=== PATIENT | female | born 1955 | race Asian ===

== ENCOUNTER 2017-08-26 00:03 | Emergency (ER) | payer BC ==
[2017-08-26 00:16] VITALS: BP 160/91; PULSE 66; TEMP 97.9; BMI 26.4
--- NOTE | 2017-08-26 00:28 | PDOC ---
History of Present Illness - General History Source: Patient Exam Limitations: No Limitations - History of Present Illness Initial Comments: 08/26/17 00:51 The patient is a 62 year old female with a significant PMH of CVA,pacemaker, HTN ,thyroid CA and HLD who presents to the emergency department, via EMS, with sudden onset of pain behind her right knee earlier today. Patient reports that she was walking when she had a sudden onset of behind the right knee pain. She states her right knee pain is constant and she is unable to stand secondary to her right knee pain . She also reports that she took 2 tylenol prior to arriving to ED with no relief of present symptoms. She states that she had no recent trauma or injury to her knee. Patient denies any past knee surgeries. Denies pain to the front part of her knee. The patient denies chest pain, shortness of breath, headache and dizziness. Denies fever, chills, nausea, vomit, diarrhea and constipation. Denies dysuria, frequency, urgency and hematuria. Denies focal numbness, weakness or tingling Allergies: NKA Past surgical history: Thyroid removal , total hysterectomy <Lisa Truong - Last Filed: 08/26/17 01:32> <Anne-Marie Davis - Last Filed: 08/26/17 16:36> - General Chief Complaint: Pain, Acute Stated Complaint: R LEG PAIN Time Seen by Provider: 08/26/17 00:14 Past History <Lisa Truong - Last Filed: 08/26/17 01:32> - Past Medical History Anemia: No Asthma: No Cancer: No Cardiac Disorders: Yes (HX OF TACHY-LIBRA SYNDROME, MVP) CVA: Yes COPD: No CHF: No Dementia: No Diabetes: No GI Disorders: No Disorders: No HTN: Yes Hypercholesterolemia: Yes Liver Disease: No Seizures: No Thyroid Disease: Yes (HX OF THYROID CANCER) - Surgical History Abdominal Surgery: No Appendectomy: No Cardiac Surgery: Yes (PACEMAKER) Cholecystectomy: No Lung Surgery: No Neurologic Surgery: No Orthopedic Surgery: No - Immunization History Immunization Up to Date: No - Suicide/Smoking/Psychosocial Hx Smoking History: Never smoked Have you smoked in the past 12 months: No Hx Alcohol Use: No Drug/Substance Use Hx: No Substance Use Type: None <Anne-Marie Davis - Last Filed: 08/26/17 16:36> - Past Medical History Allergies/Adverse Reactions: Allergies Allergy/AdvReac Type Severity Reaction Status Date / Time No Known Allergies Allergy Verified 08/26/17 00:11 Home Medications: Ambulatory Orders Levothyroxine [Synthroid -] 100 mcg PO DAILY #0 tablet 05/13/13 Omeprazole [Prilosec (RX)] 20 mg PO DAILY #7 capsule 05/13/13 Simvastatin [Zocor] 20 mg PO HS #7 tablet 05/13/13 Carvedilol 25 mg PO DAILY 08/26/17 Losartan Potassium [Cozaar] 150 mg PO DAILY 08/26/17 Review of Systems - Review of Systems Able to Perform ROS?: Yes Comments:: 08/26/17 00:52 CONSTITUTIONAL: Absent: fever, chills, diaphoresis, generalized weakness, malaise, loss of appetite HEENT: Absent: rhinorrhea, nasal congestion, throat pain, throat swelling, difficulty swallowing, mouth swelling, ear pain, eye pain, visual Changes CARDIOVASCULAR: Absent: chest pain, syncope, palpitations, irregular heart rate, lightheadedness , peripheral edema RESPIRATORY: Absent: cough, shortness of breath, dyspnea with exertion, orthopnea, wheezing, stridor, hemoptysis GASTROINTESTINAL: Absent: abdominal pain, abdominal distension, nausea, vomiting, diarrhea, constipation, melena, hematochezia GENITOURINARY: Absent: dysuria, frequency, urgency, hesitancy, hematuria, flank pain, genital pain MUSCULOSKELETAL: +knee pain Absent: joint swelling SKIN: Absent: rash, itching, pallor HEMATOLOGIC/IMMUNOLOGIC: Absent: easy bleeding, easy bruising, lymphadenopathy, frequent infections ENDOCRINE: Absent: unexplained weight gain, unexplained weight loss, heat intolerance, cold intolerance NEUROLOGIC: Absent: headache, focal weakness or paresthesias, dizziness, unsteady gait, seizure, mental status changes, bladder or bowel incontinence PSYCHIATRIC: Absent: anxiety, depression, suicidal or homicidal ideation, hallucinations. All Other Systems: Reviewed and Negative <Lisa Truong - Last Filed: 08/26/17 01:32> *Physical Exam - Vital Signs Last Vital Signs Temp Pulse Resp BP Pulse Ox 97.9 F 66 18 160/91 100 08/26/17 00:11 08/26/17 00:11 08/26/17 00:11 08/26/17 00:11 08/26/17 00:11 - Physical Exam Comments: 08/26/17 00:52 GENERAL: Well developed, well nourished. Awake and alert. No acute distress. HEENT: Normocephalic, atraumatic. PERRLA, EOMI. No conjunctival pallor. Sclera are non- icteric. Moist mucous membranes. Oropharynx is clear. NECK: Supple. Full ROM. No JVD. Carotid pulses 2+ and symmetric, without bruits. No thyromegaly. No lymphadenopathy. CARDIOVASCULAR: Regular rate and rhythm. No murmurs, rubs, or gallops. Distal pulses are 2+ and symmetric. PULMONARY: No evidence of respiratory distress. Lungs clear to auscultation bilaterally. No wheezing, rales or rhonchi. ABDOMINAL: Soft. Non-tender. Non-distended. No rebound or guarding. No organomegaly. Normoactive bowel sounds. MUSCULOSKELETAL Normal range of motion at all joints. No bony deformities or tenderness. No CVA tenderness. EXTREMITIES: +Pain behind right knee. No toe pain, No foot pain. No ankle pain, No calf pain. No history of trauma. No cyanosis. No clubbing. No edema. No calf tenderness. SKIN: Warm and dry. Normal capillary refill. No rashes. No jaundice. NEUROLOGICAL: Alert, awake, appropriate. Cranial nerves 2-12 intact. No deficits to light touch and temperature in face, upper extremities and lower extremities. No motor deficits in the in face, upper extremities and lower extremities. Normoreflexic in the upper and lower extremities. Normal speech. Toes are down- going bilaterally. Gait is normal without ataxia. PSYCHIATRIC: Cooperative. Good eye contact. Appropriate mood and affect. <Lisa Truong - Last Filed: 08/26/17 01:32> - Vital Signs Last Vital Signs Temp Pulse Resp BP Pulse Ox 97.9 F 66 18 160/91 100 08/26/17 00:11 08/26/17 00:11 08/26/17 00:11 08/26/17 00:11 08/26/17 00:11 <Anne-Marie Davis - Last Filed: 08/26/17 16:36> ED Treatment Course - RADIOLOGY Radiograph Interpretation: 08/26/17 01:33 EXAM: Ultrasound DUPLEX VASCULAR US-1 LEG IMPRESSION: No deep vein thrombosis Reported by Imaging Oncall - Medications Given in the ED: ED Medications Discontinued Medications Generic Name Dose Route Start Last Admin Trade Name Fredy PRN Reason Stop Dose Admin Carvedilol 25 mg 08/26/17 00:32 08/26/17 00:46 Coreg - PO 08/26/17 00:33 25 mg ONCE ONE Administration Ketorolac Tromethamine 60 mg 08/26/17 00:32 08/26/17 00:46 Toradol Injection - IM 08/26/17 00:33 60 mg ONCE ONE Administration <Lisa Truong - Last Filed: 08/26/17 01:32> *DC/Admit/Observation/Transfer - Attestations Scribe Attestion: 08/26/17 00:52 Documentation prepared by Lisa Truong, acting as medical technologist generalist for Anne-Marie Davis MD <Lisa Truong - Last Filed: 08/26/17 01:32> <Anne-Marie Davis - Last Filed: 08/26/17 16:36> Diagnosis at time of Disposition: Knee pain, acute - Discharge Dispostion Disposition: HOME Condition at time of disposition: Good - Referrals Referrals: Radha Cohen [Primary Care Provider] - Scott Sotelo MD [Staff Physician] - - Patient Instructions Printed Discharge Instructions: Knee Sprain, DI for Knee Pain Additional Instructions: you can take motrin 600 mg every 8 hours as needed for pain. follow up with your orthopedist dr. sotelo. see referral number. - Post Discharge Activity
[2017-08-26] MEDS ORDERED: KETOROLAC TROMETHAMINE 60 MG/2 ML VIAL IM ONE (00:32)
[2017-08-26] MEDS ORDERED: CARVEDILOL 25 MG TABLET (FP) PO ONE (00:32)
[2017-08-26] MEDS ORDERED: CARVEDILOL 12.5 MG TABLET (FP) ONE (00:44)
[2017-08-26] MEDS ORDERED: KETOROLAC TROMETHAMINE 60 MG/2 ML VIAL ONE (00:44)
[2017-08-26] MEDS ORDERED: CYCLOBENZAPRINE HCL 10 MG TABLET (FP) PO ONE (02:01)
[2017-08-26] MEDS ORDERED: CYCLOBENZAPRINE HCL 10 MG TABLET (FP) ONE (02:03)
--- NOTE | 2017-08-26 04:24 | PDOC ---
*Physical Exam - Vital Signs Last Vital Signs Temp Pulse Resp BP Pulse Ox 97.9 F 66 18 160/91 100 08/26/17 00:11 08/26/17 00:11 08/26/17 00:11 08/26/17 00:11 08/26/17 00:11 ED Treatment Course - RADIOLOGY Radiology Studies Ordered: Category Date Time Status KNEE 3 POS-RIGHT [RAD] Stat Radiology 08/26/17 02:42 Taken SPINE-LUMBAR SACRAL [RAD] Stat Radiology 08/26/17 02:43 Taken - Medications Given in the ED: ED Medications Discontinued Medications Generic Name Dose Route Start Last Admin Trade Name Freq PRN Reason Stop Dose Admin Carvedilol 25 mg 08/26/17 00:32 08/26/17 00:46 Coreg - PO 08/26/17 00:33 25 mg ONCE ONE Administration Cyclobenzaprine HCl 5 mg 08/26/17 02:01 08/26/17 02:05 Flexeril - PO 08/26/17 02:02 5 mg ONCE ONE Administration Ketorolac Tromethamine 60 mg 08/26/17 00:32 08/26/17 00:46 Toradol Injection - IM 08/26/17 00:33 60 mg ONCE ONE Administration Oxycodone/Acetaminophen 1 combo 08/26/17 02:01 08/26/17 02:05 Percocet 5/325 - PO 08/26/17 02:02 Not Given ONCE ONE Medical Decision Making - Medical Decision Making 08/26/17 04:19 62 yo Fwtih h/o sciatica, here with c/o right posterior knee pain. started suddenly, unable to bear weight on leg due to severe pain. has had recent back pain. denies trauma. was signed out to me by Dr. Davis. had us was negative for diaz cyst or dvt. xray knee and low back negative for fx. on exam from knee. quad/ patellar tendon intact, ( full ext 5/5) sensation intact. ttp posterior lower hamstrings. differential knee ligament derangement, muscle strain. paln nsaids, muscle relaxed, knee immobilizercrutches and orthopedic followup. *DC/Admit/Observation/Transfer Diagnosis at time of Disposition: Knee pain, acute - Discharge Dispostion Disposition: HOME Condition at time of disposition: Good Admit: No - Referrals Referrals: Radha Cohen [Primary Care Provider] - Scott Sotelo MD [Staff Physician] - - Patient Instructions Printed Discharge Instructions: Knee Sprain, DI for Knee Pain Additional Instructions: you can take motrin 600 mg every 8 hours as needed for pain. follow up with your orthopedist dr. sotelo. see referral number. - Post Discharge Activity
== END 2017-08-26 04:46 | disposition home or self-care (01) ==
LOC: JER 00:03
PROC: 3E0233Z Introduction of Anti-inflammatory into Muscle, Percutaneous Approach (ICD-10-PCS; principal; 2017-08-26)
DX: M25.561 Pain in right knee (principal); I10 Essential (primary) hypertension; E78.00 Pure hypercholesterolemia, unspecified; Z95.0 Presence of cardiac pacemaker; Z86.73 Personal history of transient ischemic attack (TIA), and cerebral infarction without residual deficits; Z85.850 Personal history of malignant neoplasm of thyroid
CPT/HCPCS: 72100-TC-FY; 73562-TC-RT-FY; 93971-TC; 99283-25

== ENCOUNTER 2019-04-22 16:02 | Observation (INO) | payer BC ==
[2019-04-22 16:48] VITALS: BMI 25.4
--- NOTE | 2019-04-22 17:19 | PDOC ---
History of Present Illness - General Chief Complaint: Syncope/Near Syncope Stated Complaint: Syncope/Near Syncope Time Seen by Provider: 04/22/19 16:19 History Source: Patient Exam Limitations: No Limitations Past History - Past Medical History Allergies/Adverse Reactions: Allergies Allergy/AdvReac Type Severity Reaction Status Date / Time No Known Allergies Allergy Verified 04/22/19 16:48 Home Medications: Ambulatory Orders Omeprazole [Prilosec (RX)] 20 mg PO DAILY #7 capsule 05/13/13 Simvastatin [Zocor] 20 mg PO HS #7 tablet 05/13/13 Carvedilol 25 mg PO DAILY 08/26/17 Losartan Potassium [Cozaar] 100 mg PO DAILY 08/26/17 Gabapentin 100 mg PO DAILY 04/22/19 Gabapentin 300 mg PO PRN PRN 04/22/19 Levothyroxine [Synthroid -] 50 mcg PO ASDIR 04/22/19 Levothyroxine [Synthroid -] 100 mcg PO ASDIR 04/22/19 Losartan Potassium 50 mg PO HS 04/22/19 Anemia: No Asthma: No Cancer: No Cardiac Disorders: Yes (HX OF TACHY-LIBRA SYNDROME, MVP) CVA: Yes COPD: No CHF: No Dementia: No Diabetes: No GI Disorders: No Disorders: No HTN: Yes Hypercholesterolemia: Yes Liver Disease: No Seizures: No Thyroid Disease: Yes (HX OF THYROID CANCER) - Surgical History Abdominal Surgery: No Appendectomy: No Cardiac Surgery: Yes (PACEMAKER) Cholecystectomy: No Lung Surgery: No Neurologic Surgery: No Orthopedic Surgery: No - Immunization History Immunization Up to Date: No - Psycho Social/Smoking Cessation Hx Smoking History: Never smoked Have you smoked in the past 12 months: No Information on smoking cessation initiated: No Hx Alcohol Use: No Drug/Substance Use Hx: No Substance Use Type: None Review of Systems - Review of Systems Able to Perform ROS?: Yes Is the patient limited Arabic proficient: No *Physical Exam - Vital Signs Last Vital Signs Temp Pulse Resp BP Pulse Ox 97.3 F L 60 16 135/86 100 04/22/19 16:05 04/22/19 16:05 04/22/19 16:05 04/22/19 16:05 04/22/19 16:05 ED Treatment Course - LABORATORY CBC & Chemistry Diagram: 04/22/19 17:55 04/22/19 17:55 - RADIOLOGY Radiology Studies Ordered: Category Date Time Status CHEST X-RAY PORTABLE* [RAD] Stat Radiology 04/22/19 16:53 Ordered Medical Decision Making - Medical Decision Making 04/22/19 17:10 HPI: 64F PMH HTN HLD Hypothyroidism s/p resection BIBEMS after episode of LOC. Pt was standing in line at a store, felt "off" and that her vision was blacking out. Assisted to ground by bystanders. Pt unable to characterize the feeling. + LOC w/o head strike; pt woke up and noticed she had vomited. No incontinence or tongue biting. Per pt, EMS found her SBP in the 80s and BGM 120s; IV NS initiated. Pt denies preceeding symptoms of nausea, warmness, rising sensation, cp/palpitations/sob. Denies headache, lightheadedness, dizziness, weakness. Eating and drinking normally. +h/o syncope w/ neg work up. 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 Radha Jasso). PMH as above; currently on day 9 of shingles tx NKDA ROS: CONSTITUTIONAL: Denies F / C HEENT: Denies headache, lightheadedness, dizziness, changes in vision / hearing , head strike. RESP: Denies SOB CARD: Denies chest pain, palpitations GI: Endorses one episode vomiting. Denies N / D, abdominal pain, inability to tolerate PO : Denies dysuria, frequency SKIN: Denies rashes NEURO: Denies numbness, tingling, weakness PE: GEN: Well appearing, NAD, comfortable. AAOx3 HEENT: NC/AT, CN II-XII intact, EOMI, PERRLA. No facial asymmetry. Moist mucous membranes. Normal voice. Supple neck w/ FROM. CV: S1/S2, RRR, no m/r/g LUNG: CTAB, no wheezes, crackles, rales, rhonchi. GI: soft, ndnt, +BS, no guarding, no rebound. No masses. EXTREMITIES: No LE edema. No obvious deformities of all extremities. SKIN: warm, dry, normal turgor PSYCH: normal mood and affect NEURO: Moving all extremities well. 5/5 UE and LE strength. Symmetric sensation. No FTN ataxia. MDM: 64F BIBEMS after syncopal episode. No focal deficits. DDX - likely vasovagal vs orthostatic; eval for arrhythmia, electrolyte abnormalities - cbc, cmp, cardiac - ekg - cxr - obs-tele 04/22/19 18:56 Ca corrected to 7.9 K 3.4 - added on Mg lvl 04/22/19 19:06 signed out to PM team
[2019-04-22 18:04] LABS: BASO % 1.1 % (0-2.0); EOS % 1.3 % (0-4.5); HEMATOCRIT 32.8 % (32.4-45.2); HEMOGLOBIN 10.8 GM/dL (10.7-15.3); LYMPH % 18.9 % (8-40); MCH 30.5 pg (25.7-33.7); MEAN CELL VOLUME 92.6 fl (80-96); MEAN PLT VOLUME 8.8 fl (7.5-11.1); MONO % 5.3 % (3.8-10.2); NEUT % 73.4 % (42.8-82.8); PLATELET COUNT 169 K/MM3 (134-434); RBC 3.54 M/mm3 (3.60-5.2); RDW 13.6 % (11.6-15.6); WHITE BLOOD COUNT 6.3 K/mm3 (4.0-10.0)
[2019-04-22 18:08] LABS: EPI CELLS 1.2 /HPF (0-5/HPF); HYALINE CASTS 5 /lpf (0-8); PH,URINE 5.5 (5.0-8.0); URINE APPEARANCE CLEAR; URINE BACTERIA 1.5 /hpf (NEGATIVE); URINE BILIRUBIN NEGATIVE (NEGATIVE); URINE COLOR YELLOW; URINE GLUCOSE (UA) NEGATIVE (NEGATIVE); URINE KETONE NEGATIVE (NEGATIVE); URINE LEUK ESTERASE TRACE (NEGATIVE); URINE NITRITE NEGATIVE (NEGATIVE); URINE PROTEIN NEGATIVE (NEGATIVE); URINE RBC 1 /hpf (0-4); URINE UROBILINOGEN 0.2 mg/dL (0.2-1.0); URINE WBC 8 /hpf (0-5)
--- NOTE | 2019-04-22 18:35 | PDOC ---
Documentation entered by Keith Michael SCRIBE, acting as scribe for Nallely Lopes MD. Nallely Lopes MD: This documentation has been prepared by the Alec blankenship Daniel, SCRIBE, under my direction and personally reviewed by me in its entirety. I confirm that the documentation accurately reflects all work, treatment, procedures, and medical decision making performed by me. Attending Attestation - Resident Resident Name: MontgomeryKevin - ED Attending Attestation I have performed the following: I have examined & evaluated the patient, The case was reviewed & discussed with the resident, I agree w/resident's findings & plan, Exceptions are as noted - HPI HPI: 04/22/19 17:30 The patient is a 64 year old female with a past medical history of HTN, HLD, hypothyroidism, tachycardia-bradycardia syndrome s/p pacemaker here today for evaluation of witnessed syncopal episode. The patient reports that she was shopping today when she suddenly felt like she was going to pass out so she sat down in the supermarket. She reports that the next thing she remembers was waking up with vomit everywhere. She states that there were witnesses and denies any head strike. She notes having vasovagal episodes in the past. Per EMS , pt was hypotensive in the field to 80s systolic and received some fluids in route. Pt does not know what kind of pacemaker she has, nor does she have her card. Patient denies headache, dizziness, focal weakness/numbness. Denies fever, chills. Denies chest pain, shortness of breath. Denies nausea, vomiting, diarrhea, abdominal pain. Allergies: NKA - Physicial Exam PE: 04/22/19 17:30 GENERAL: Awake, alert, and fully oriented, in no acute distress HEAD: No signs of trauma EYES: PERRLA, EOMI, sclera anicteric, conjunctiva clear ENT: Oropharynx clear without exudates. Moist mucosa NECK: Normal ROM, supple, no lymphadenopathy, JVD, or masses BACK: No midline cervical, thoracic, or lumbar tp LUNGS: Breath sounds equal, clear to auscultation bilaterally. No wheezes, and no crackles HEART: Regular rate and rhythm, normal S1 and S2, no murmurs, rubs or gallops ABDOMEN: Soft, nontender, normoactive bowel sounds. No guarding, no rebound. No masses EXTREMITIES: Normal range of motion, no edema. No cords, erythema, or tenderness BACK: No midline spinal tenderness in cervical/thoracic/lumbar region NEUROLOGICAL: Normal speech, cranial nerves intact, 5/5 strength in all 4 extremities, normal sensation to light touch in all 4 extremities, normal cerebellar exam, normal gait, normal reflexes and tone SKIN: Warm, Dry, normal turgor, no rashes or lesions noted. - Medical Decision Making 04/22/19 18:31 64-year-old female with multiple medical problems including tachybradycardia syndrome status post pacemaker, syncope presents the emergency department after syncopal episode at the [facility]. Patient was hypotensive in the field to the 80s systolic, but this improved with fluids on the way to the emergency department Vitals here are unremarkable. Exam unremarkable with no evidence of trauma. Concern for cardiac arrhythmia and pacemaker failure. Patient does not know pain if pacemaker she has noticed to have her card. She says it was [facility] in [facility]. Plan for telemetry monitoring, labs and telemetry observation admission. Heart Score/ECG Review #1 04/22/19 18:30 Twelve-lead EKG was performed and reviewed by me. Atrial paced rhythm, rate 62. Wavy baseline in some leads but no gross ST elevations.
[2019-04-22 18:39] LABS: ALBUMIN 2.8 g/dl (3.4-5.0); ALK PHOS 55 U/L (45-117); ANION GAP 9 MMOL/L (8-16); BILIRUBIN,TOTAL 0.6 mg/dL (0.2-1); CHLORIDE 112 mmol/L (98-107); CO2 22 mmol/L (21-32); CREATININE 0.7 mg/dL (0.55-1.3); GLUCOSE,RANDOM 91 mg/dL (74-106); POTASSIUM 3.4 mmol/L (3.5-5.1); SGOT/AST 12 U/L (15-37); SGPT/ALT 14 U/L (13-61); SODIUM 143 mmol/L (136-145); TOT PROT 5.6 g/dl (6.4-8.2)
[2019-04-22 18:40] LABS: CALCIUM 6.9 mg/dL (8.5-10.1)
[2019-04-22 19:14] LABS: MAGNESIUM 1.9 mg/dL (1.8-2.4)
[2019-04-22] MEDS ORDERED: GABAPENTIN 300 MG CAPSULE (FP) PO ONE (19:42)
[2019-04-22] MEDS ORDERED: valACYclovir HCL 1000 MG TABLET PO ONE (19:42)
--- NOTE | 2019-04-22 19:43 | PDOC ---
*Physical Exam - Vital Signs Last Vital Signs Temp Pulse Resp BP Pulse Ox 97.3 F L 73 18 139/79 98 04/22/19 16:05 04/22/19 19:36 04/22/19 19:36 04/22/19 19:36 04/22/19 19:36 ED Treatment Course - LABORATORY CBC & Chemistry Diagram: 04/22/19 17:55 04/22/19 17:55 - ADDITIONAL ORDERS Additional order review: Laboratory Results 04/22/19 04/22/19 17:55 17:55 Sodium 143 Potassium 3.4 L Chloride 112 H Carbon Dioxide 22 Anion Gap 9 BUN 12.0 Creatinine 0.7 Est GFR (CKD-EPI)AfAm 106.12 Est GFR (CKD-EPI)NonAf 91.56 Random Glucose 91 Calcium 6.9 L* Magnesium 1.9 Total Bilirubin 0.6 AST 12 L ALT 14 Alkaline Phosphatase 55 Creatine Kinase 52 Troponin I < 0.02 Total Protein 5.6 L Albumin 2.8 L Urine Color Yellow Urine Appearance Clear Urine pH 5.5 Ur Specific [place] 1.009 L Urine Protein Negative Urine Glucose (UA) Negative Urine Ketones Negative Urine Blood Negative Urine Nitrite Negative Urine Bilirubin Negative Urine Urobilinogen 0.2 Ur Leukocyte Esterase Trace Urine WBC (Auto) 8 Urine RBC (Auto) 1 Urine Casts (Auto) 5 U Epithel Cells (Auto) 1.2 Urine Bacteria (Auto) 1.5 04/22/19 17:55 RBC 3.54 L MCV 92.6 MCHC 33.0 RDW 13.6 MPV 8.8 Neutrophils % 73.4 Lymphocytes % 18.9 Monocytes % 5.3 Eosinophils % 1.3 Basophils % 1.1 Medical Decision Making - Medical Decision Making 04/22/19 19:43 Sign out received fom Dr. Montgomery: 64yo F multiple medical problems including tachybradycardia syndrom s/p PM, syncope, and shingles on day 9 of valtrex and gabapentin presents to ED after syncopal episode at [facility] today, hypotensive with SBP 80s per EMS, improved with fluids. Labs and EKG done - of note, EKG atrial paced rhythm w/o e /o acute ischemia, K 3.4, Ca 6.9 (corrected 8.1). Pending CXR and repletion of K and Ca, admit to tele obs for syncope. Pt seen and assessed at bedside, requesting her Gabapentin, Valtrex, and kosher food - ordered. No current complaints or new findings. No changes in plan. CXR reviewed - no acute pathology K and Ca ordered to replete. Pt signed out to admitting team. Discharge - Discharge Information Problems reviewed: Yes Clinical Impression/Diagnosis: Syncope Condition: Stable - Admission Yes - Follow up/Referral - Patient Discharge Instructions - Post Discharge Activity
[2019-04-22] MEDS ORDERED: valACYclovir HCL 500 MG TABLET (FP) ONE (20:02)
[2019-04-22] MEDS ORDERED: GABAPENTIN 100 MG CAPSULE (FP) ONE (20:03)
[2019-04-22] MEDS ORDERED: CALCIUM GLUCONATE 10% - 1,000 MG/10 ML VIAL IVPB ONE (20:39)
[2019-04-22] MEDS ORDERED: POTASSIUM CHLORIDE TABS 20 MEQ TABLET.ER (FP) PO ONE ×4 (20:39→22:43)
[2019-04-22] MEDS ORDERED: CALCIUM GLUCONATE 10% - 1,000 MG/10 ML VIAL ONE (20:57)
[2019-04-22] MEDS ORDERED: HEPARIN NA (PORCINE) 5,000 UNITS/ML 1ML VIAL SQ SCH (21:00)
--- NOTE | 2019-04-22 21:08 | HP ---
CHIEF COMPLAINT: "I blacked out" PCP: Denies HISTORY OF PRESENT ILLNESS: This is a 63 y/o F with a PMHx significant for HTN, Hypothyroidism s/p thyroidectomy, tachybrady syndrome, who was BIBEMS after "blacking out" while shopping. She describes feeling nauseous and vomited but did not recall doing so afterwards. She "blacked out" for a couple seconds but was sitting on the floor at the time because she did not want to risk falling. She denies hitting her head or having any recent trauma. She has a hx of episodes like this since she had a pacemaker placed in 2008. She describes this as being different in that usually she can recall vomiting and it usually is improved after doing so. She had her pacemaker interrogated in 03/14 and it was found to be normal and had an echo at that time found to be normal as well, at [facility]. 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 Tres Hines at [facility]. Pt denies having a hx of seizures or family hx. She denies any cp, palpitations, flushed feeling, fever, chills, sick contacts, bowel/bladder complaints. She started taking gabapentin and valtrex 9 days ago for Shingles on her right neck and arm. She admits that her Dr. increased the neurontin recently from 100->300mg due to worsening pain. Pt admits to having a poor appetite during this treatment period. Pt follows up regularly with her endo dr webster given her hypothyroidism and she is on 100mg synthroid Sat-Sat and Saturday 50mg without any recent change to this medication and recent TSH found to be normal per patient. ER course was notable for: (1) EKG nsr, CXR- no acute pathology (2) Ca- 8.1 corrected (3) K-3.4, Alb, Protein were low as well. Recent Travel: denies PAST SURGICAL HISTORY: hysterectomy, thyroidectomy Social History: Smoking: denies Alcohol: denies Drugs:denies Allergies No Known Allergies Allergy (Verified 04/22/19 16:48) HOME MEDICATIONS: Home Medications Medication Instructions Recorded Omeprazole [Prilosec (RX)] 20 mg PO DAILY #7 capsule 05/13/13 Simvastatin [Zocor] 20 mg PO HS #7 tablet 05/13/13 Carvedilol 25 mg PO DAILY 08/26/17 Losartan Potassium [Cozaar] 100 mg PO DAILY 08/26/17 Gabapentin 100 mg PO DAILY 04/22/19 Gabapentin 300 mg PO PRN PRN 04/22/19 Levothyroxine [Synthroid -] 50 mcg PO ASDIR 04/22/19 Levothyroxine [Synthroid -] 100 mcg PO ASDIR 04/22/19 Losartan Potassium 50 mg PO HS 04/22/19 REVIEW OF SYSTEMS Negative except in HPI PHYSICAL EXAMINATION Vital Signs - 24 hr 04/22/19 04/22/19 16:05 19:36 Temperature 97.3 F L Pulse Rate 60 Pulse Rate [ 73 Right Radial] Respiratory 16 18 Rate Blood Pressure 135/86 Blood Pressure 139/79 [Left Arm] O2 Sat by Pulse 100 98 Oximetry (%) GENERAL: Awake, alert, and fully oriented, in no acute distress. HEAD: Normal with no signs of trauma. EARS, NOSE, THROAT: Ears normal, nares patent, oropharynx clear without exudates. LUNGS: Breath sounds equal, clear to auscultation bilaterally. No wheezes, and no crackles. No accessory muscle use. HEART: Fluctuating pulse between regular rate and veronica rate with regular rhythm , normal S1 and S2 without murmur, rub or gallop. ABDOMEN: Soft, nontender, not distended, normoactive bowel sounds, no guarding, no rebound, no masses. No hepatomegaly or splenomegaly. UPPER EXTREMITIES: 2+ pulses, warm, well-perfused. Zoster rash on Rt arm. LOWER EXTREMITIES: 2+ pulses, warm, well-perfused. No calf tenderness. No peripheral edema. NEUROLOGICAL: Cranial nerves II-XII intact. Normal speech. PSYCHIATRIC: Cooperative. Good eye contact. Appropriate mood and affect. SKIN: Warm, dry, normal turgor, no rashes or lesions noted Laboratory Results - last 24 hr 04/22/19 04/22/19 04/22/19 17:55 17:55 17:55 WBC 6.3 RBC 3.54 L Hgb 10.8 Hct 32.8 MCV 92.6 MCH 30.5 MCHC 33.0 RDW 13.6 Plt Count 169 MPV 8.8 Absolute Neuts (auto) 4.6 Neutrophils % 73.4 Lymphocytes % 18.9 Monocytes % 5.3 Eosinophils % 1.3 Basophils % 1.1 Nucleated RBC % 0 Sodium 143 Potassium 3.4 L Chloride 112 H Carbon Dioxide 22 Anion Gap 9 BUN 12.0 Creatinine 0.7 Est GFR (CKD-EPI)AfAm 106.12 Est GFR (CKD-EPI)NonAf 91.56 Random Glucose 91 Calcium 6.9 L* Magnesium 1.9 Total Bilirubin 0.6 AST 12 L ALT 14 Alkaline Phosphatase 55 Creatine Kinase 52 Troponin I < 0.02 Total Protein 5.6 L Albumin 2.8 L Urine Color Yellow Urine Appearance Clear Urine pH 5.5 Ur Specific [place] 1.009 L Urine Protein Negative Urine Glucose (UA) Negative Urine Ketones Negative Urine Blood Negative Urine Nitrite Negative Urine Bilirubin Negative Urine Urobilinogen 0.2 Ur Leukocyte Esterase Trace Urine WBC (Auto) 8 Urine RBC (Auto) 1 Urine Casts (Auto) 5 U Epithel Cells (Auto) 1.2 Urine Bacteria (Auto) 1.5 ASSESSMENT/PLAN: This is a 63 y/o F with a PMHx significant for HTN, Hypothyroidism s/p thyroidectomy, tachybrady syndrome, who was BIBEMS after "blacking out" while shopping. She describes feeling nauseous and vomited but did not recall doing so afterwards. She "blacked out" for a couple seconds but was sitting on the floor at the time because she did not want to risk falling. #Syncope -> likely 2/2 vasovagal syncope/cardiac given her tachybrady syndrome hx - doubt orthostatic due to its lack of association with position - orthostatics negative although taken after fluids given - pt reports decreased appetite lately since the increase in her neurontin, Hypokalemia and Hypocalcemia also possibly associated with the decreased PO intake. - echo, carotid - CT head performed and negative - pacemaker recently interrogated so doubt their is need to reinterrogate. You may want follow up with [facility] for confirmation of interrogation. - continue home meds and monitor on obs/tele - fall/aspiration precautions #Hypokalemia/Hypocalcemia - likely 2/2 decreased PO intake - albumin and protein low as well likely indicating poor intake. - IV calcium gluconate, Mg2+, PO KCL given. #Shingles - Hold neurontin at this time, pt already received her 300mg dose in ED. - 1g valtrex TID for tomorrow - IV tylenol for neuralgia associated with the shingles rash PRN #Hypothyroid - continue synthroid as prescribed #HTN - continue home meds as prescribed. Hep 5K TID for DVT PPX Visit type - Emergency Visit Emergency Visit: Yes ED Registration Date: 04/22/19 Care time: The patient presented to the Emergency Department on the above date and was hospitalized for further evaluation of their emergent condition. - New Patient This patient is new to me today: Yes Date on this admission: 04/23/19 - Critical Care Critical Care patient: No ATTENDING PHYSICIAN STATEMENT I saw and evaluated the patient. I reviewed the resident's note and discussed the case with the resident. I agree with the resident's findings and plan as documented. SUBJECTIVE: OBJECTIVE: ASSESSMENT AND PLAN:
[2019-04-22] MEDS ORDERED: ATORVASTATIN CA 10 MG TABLET (FP) PO SCH (22:00)
[2019-04-22] MEDS ORDERED: LOSARTAN POTASSIUM 50 MG TABLET (FP) PO SCH (22:00)
[2019-04-22] MEDS ORDERED: ATORVASTATIN CA 10 MG TABLET (FP) ONE (22:43)
[2019-04-22] MEDS ORDERED: LOSARTAN POTASSIUM 50 MG TABLET (FP) ONE (22:43)
[2019-04-22] MEDS ORDERED: CARVEDILOL 12.5 MG TABLET (FP) ONE (22:43)
[2019-04-22] MEDS: CARVEDILOL 25 MG TABLET (FP) PO SCH (22:59)
--- NOTE | 2019-04-23 02:35 | PN ---
Teaching Attending Note Name of Resident: Davey Nieto ATTENDING PHYSICIAN STATEMENT I saw and evaluated the patient. I reviewed the resident's note and discussed the case with the resident. I agree with the resident's findings and plan as documented. SUBJECTIVE: 64-year-old woman with history of hypertension and dyslipidemia, Status post pacemaker placement in [facility], hypothyroidism status post resection brought in by ambulance after episode of loss of consciousness. On 04/22 in the afternoon patient was standing in line at a store and felt that her vision was black. This was followed by a loss of consciousness, patient was assisted to ground by bystanders. No head strike. Denied incontinence or tongue biting. Blood glucose was found to be normal in the field. Systolic blood pressure was on the low side.Patient denied any palpitations or chest pain preceding her loss of consciousness. Of note, patient was treated with with valtrex for 10 days for right upper extremity shingles. OBJECTIVE: Last Vital Signs Temp Pulse Resp BP Pulse Ox 98.0 F 69 16 150/85 99 04/22/19 21:23 04/22/19 22:58 04/22/19 22:58 04/22/19 22:58 04/23/19 01:00 GENERAL: Well developed, well nourished. Awake and alert. No acute distress. HEENT: Normocephalic, atraumatic. PERRLA, EOMI. No conjunctival pallor. Sclera are non- icteric. Moist mucous membranes. Oropharynx is clear. NECK: Supple. Full ROM. No JVD. Carotid pulses 2+ and symmetric, without bruits. No thyromegaly. No lymphadenopathy. CARDIOVASCULAR: Regular rate and rhythm. No murmurs, rubs, or gallops. Distal pulses are 2+ and symmetric. PULMONARY: No evidence of respiratory distress. Lungs clear to auscultation bilaterally. No wheezing, rales or rhonchi. ABDOMINAL: Soft. Non-tender. Non-distended. No rebound or guarding. No organomegaly. Normoactive bowel sounds. MUSCULOSKELETAL Normal range of motion at all joints. No bony deformities or tenderness. No CVA tenderness. EXTREMITIES: right upper extremity healed crusted lesions SKIN: Warm and dry. Normal capillary refill. No rashes. No jaundice. PSYCHIATRIC: Cooperative. Good eye contact. Appropriate mood and affect. Abnormal Lab Results 11/27/19 11/27/19 11/27/19 17:55 17:55 17:55 RBC 3.54 L Potassium 3.4 L Chloride 112 H Calcium 6.9 L* AST 12 L Total Protein 5.6 L Albumin 2.8 L Ur Specific [place] 1.009 L ASSESSMENT AND PLAN: 64-year-old woman with recurrent syncope episodes. Suspect possible occult arrhythmia given history of pacemaker. Differential diagnosis includes vasovagal or orthostatic hypotension. Observation with telemetry Cardiology evaluation for pacemaker interrogation Monitor vital signs closely Check orthostatics Bedrest and fall precautions Echo Check magnesium supplement if low Supplement potassium and repeat Gentle IV fluid hydration DVT prophylaxis with heparin subcutaneously
[2019-04-23] MEDS ORDERED: SODIUM CHLORIDE 1,000 ML IV SCH (05:30)
[2019-04-23] MEDS ORDERED: valACYclovir HCL 500 MG TABLET (FP) PO SCH (06:00)
[2019-04-23] MEDS ORDERED: valACYclovir HCL 500 MG TABLET (FP) ONE (06:10)
[2019-04-23] MEDS ORDERED: HEPARIN NA (PORCINE) 5,000 UNITS/ML 1ML VIAL ONE (06:10)
[2019-04-23] MEDS: HEPARIN NA (PORCINE) 5,000 UNITS/ML 1ML VIAL SQ SCH ×2 (06:21→15:40)
[2019-04-23 06:30] LABS: BASO % 0.4 % (0-2.0); EOS % 4.2 % (0-4.5); HEMATOCRIT 34.2 % (32.4-45.2); HEMOGLOBIN 11.7 GM/dL (10.7-15.3); LYMPH % 16.7 % (8-40); MCH 31.2 pg (25.7-33.7); MCHC 34.2 g/dl (32.0-36.0); MEAN CELL VOLUME 91.2 fl (80-96); MEAN PLT VOLUME 8.8 fl (7.5-11.1); MONO % 6.2 % (3.8-10.2); NEUT % 72.5 % (42.8-82.8); PLATELET COUNT 196 K/MM3 (134-434); RBC 3.75 M/mm3 (3.60-5.2); RDW 13.9 % (11.6-15.6); WHITE BLOOD COUNT 9.8 K/mm3 (4.0-10.0)
[2019-04-23] MEDS ORDERED: LEVOTHYROXINE NA 100 MCG TABLET (FP) PO SCH (07:00)
[2019-04-23 07:09] LABS: ALBUMIN 3.3 g/dl (3.4-5.0); BLOOD UREA NITROGEN 15.2 mg/dL (7-18); CALCIUM 8.6 mg/dL (8.5-10.1); CREATININE 0.8 mg/dL (0.55-1.3); MAGNESIUM 2.3 mg/dL (1.8-2.4); PHOSPHOROUS 3.6 mg/dL (2.5-4.9); POTASSIUM 4.9 mmol/L (3.5-5.1); TOT PROT 6.6 g/dl (6.4-8.2)
--- NOTE | 2019-04-23 07:44 | CON.CARD ---
Consult Consult Specialty:: Cardiology Referred by:: Dr. Yung Reason for Consultation:: Syncope - History of Present Illness Chief Complaint: "Blacked out" History of Present Illness: 64F HTN, h/o PPM ([employer]) and long history of syncopal events all similar in nature. Yesterday while in line at store felt light headed and then blurry vision and slumpted to ground. Denies CP, SOB, palps. No LOC. She reports that this has happened many times before and she was diagnosed with vasovagal syncope. Interrogation of PPM March was WNL - follow at [facility] with Dr. Lopez, also reports normal Echo. She reports no prior w/u for seizures She thinks she may have had a tilt table test but is unsure. 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: Alzheimer's, CVA, Dementia, Migraine, Multiple Sclerosis, Peripheral Neuropathy, Parkinson's, Seizure, Syncope, TIA, Vertigo, Other Cardio/Vascular: Yes: HTN, Other (PPM, hx vasovagal syncope) Pulmonary: No: Asthma, Bronchitis, Cancer, COPD, O2 Dependent, Pneumonia, Previously Intubated, Pulmonary Embolus, Pulmonary Fibrosis, Sleep Apnea, Other Gastrointestinal: No: Ascites, Cancer, Constipation, Crohn's Disease, Diverticulitis, Diverticulosis, Esophageal Varices, Gastritis, GERD, GI Bleed, Hemorrhoids, Hiatal Hernia, Inflamatory Bowel Disease, Irritable Bowel Disease, Pancreatitis, Peptic Ulcer Disease, Ulcerative Colitis, Other Hepatobiliary: No: Cirrhosis, Cholelithiasis, Cholecystitis, Choledocholithiasis , Hepatitis A, Hepatitis B, Hepatitis C, Other Renal/: No: Renal Failure, Renal Inusuff, BPH, Cancer, Hematuria, Hemodialysis , Neurogenic Bladder, Renal Calculi, UTI, Other Reproductive: No: Ectopic , Endometriosis, Fibroids, PID, Polycystic Ovary Syndrome, Postmenopausal, Other Heme/Onc: No: Anemia, B12 Deficiency, Bleeding Disorder, Cancer, Current Chemotherapy, Current Radiation Therapy, Hemochromatosis, Hypercoaguable State, Myeloproliferative Synd, Sickle Cell Disease, Sickle Cell Trait, Thrombocytopenia, Other Endocrine: Yes: Hypothyroidism Dermatology: No: Basal Cell, Cellulitis, Eczema, Melanoma, Psoriasis, Squamous Cell, Other - Past Surgical History Additional Surgical History: PPM - Alcohol/Substance Use Hx Alcohol Use: No - Smoking History Smoking history: Never smoked Have you smoked in the past 12 months: No - Social History History of Recent Travel: No Home Medications - Allergies Allergies/Adverse Reactions: Allergies Allergy/AdvReac Type Severity Reaction Status Date / Time No Known Allergies Allergy Verified 04/22/19 16:48 - Home Medications Home Medications: Ambulatory Orders Omeprazole [Prilosec (RX)] 20 mg PO DAILY #7 capsule 05/13/13 Simvastatin [Zocor] 20 mg PO HS #7 tablet 05/13/13 Carvedilol 25 mg PO BID 08/26/17 Losartan Potassium [Cozaar] 100 mg PO DAILY 08/26/17 Gabapentin 300 mg PO HS 04/22/19 Levothyroxine [Synthroid -] 50 mcg PO ASDIR 04/22/19 Levothyroxine [Synthroid -] 100 mcg PO ASDIR 04/22/19 Losartan Potassium 50 mg PO HS 04/22/19 Family Medical History Family History: Unremarkable (not pertinent to this presentation) Review of Systems Findings/Remarks: see HPI - Review of Systems Constitutional: reports: No Symptoms Eyes: reports: No Symptoms HENT: reports: No Symptoms Neck: reports: No Symptoms Cardiovascular: reports: No Symptoms Respiratory: reports: No Symptoms Gastrointestinal: reports: No Symptoms Genitourinary: reports: No Symptoms Breasts: reports: No Symptoms Reported Musculoskeletal: reports: Joint Pain Neurological: reports: Dizziness, Syncope Endocrine: reports: No Symptoms Hematology/Lymphatic: reports: No Symptoms Psychiatric: reports: No Symptoms - Risk Factors Known Risk Factors: Yes: Hypertension Vital Signs: Vital Signs Temperature 98.0 F 04/22/19 21:23 Pulse Rate 69 04/22/19 22:58 Respiratory Rate 16 04/22/19 22:58 Blood Pressure 150/85 04/22/19 22:58 O2 Sat by Pulse Oximetry (%) 99 04/23/19 01:00 Constitutional: Yes: No Distress, Calm Eyes: Yes: Conjunctiva Clear, EOM Intact HENT: Yes: Atraumatic, Normocephalic Neck: Yes: Trachea Midline Respiratory: Yes: CTA Bilaterally Gastrointestinal: Yes: Soft (NT) Cardiovascular: Yes: Regular Rate and Rhythm JVD: No Carotid Bruit: No PMI: Non-Displaced Heart Sounds: Yes: S1, S2 (rrr, no murmurs) Edema: No Peripheral Pulses WNL: Yes Neurological: Yes: Alert, Oriented ...Motor Strength: WNL Psychiatric: Yes: WNL - Other Data Labs, Other Data: CBC, BMP 04/23/19 05:58 04/23/19 05:58 Troponin, BNP 04/22/19 17:55 Troponin I < 0.02 Troponin, BNP 04/22/19 17:55 Troponin I < 0.02 Imaging - Results Chest X-ray: Image Reviewed Cat Scan: Pending EKG: Image Reviewed (Atrial pacing, no acute ST changes) Assessment/Plan IMP: Recurrent syncope/presyncope, history of vasovagal episodes S/p PPM ([employer]) by report HTN Hypothyroidism REC: 1. [employer] PPM interrogation/telemetry 2. Orthostatics 3. Given the known history of vasovagal episodes, if interrogation is WNL and she is not orthostatic and able to ambulate ok to d/c home with close outpatient f/u with Dr. Lopez at [facility]. Low suspicion for ACS or pulmonary embolism at this time.
[2019-04-23] MEDS ORDERED: PANTOPRAZOLE 20 MG TABLET (FP) PO SCH (10:00)
[2019-04-23] MEDS ORDERED: LOSARTAN POTASSIUM 50 MG TABLET (FP) PO SCH (10:00)
[2019-04-23] MEDS: CARVEDILOL 25 MG TABLET (FP) PO SCH (11:31)
--- NOTE | 2019-04-23 11:36 | EKG ---
Test Reason : Blood Pressure : / mmHG Vent. Rate : 062 BPM Atrial Rate : 061 BPM P-R Int : 190 ms QRS Dur : 088 ms QT Int : 468 ms P-R-T Axes : 036 -11 018 degrees QTc Int : 475 ms Atrial-paced rhythm ABNORMAL ECG WHEN COMPARED WITH ECG OF 12-MAY-2013 23:01, CRITERIA FOR INFERIOR INFARCT ARE NO LONGER PRESENT NONSPECIFIC T WAVE ABNORMALITY, IMPROVED IN INFERIOR LEADS Confirmed by JAKE DENT MD ([id number]) on 04/23/2019 11:36:20 AM Referred By: Confirmed By:JAKE DENT MD
--- NOTE | 2019-04-23 11:48 | CON.NEURO ---
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: Alzheimer's, CVA, Dementia, Migraine, Multiple Sclerosis, Peripheral Neuropathy, Parkinson's, Seizure, Syncope, TIA, Vertigo, Other Cardio/Vascular: Yes: HTN, Other (PPM, hx vasovagal syncope) Pulmonary: No: Asthma, Bronchitis, Cancer, COPD, O2 Dependent, Pneumonia, Previously Intubated, Pulmonary Embolus, Pulmonary Fibrosis, Sleep Apnea, Other Gastrointestinal: No: Ascites, Cancer, Constipation, Crohn's Disease, Diverticulitis, Diverticulosis, Esophageal Varices, Gastritis, GERD, GI Bleed, Hemorrhoids, Hiatal Hernia, Inflamatory Bowel Disease, Irritable Bowel Disease, Pancreatitis, Peptic Ulcer Disease, Ulcerative Colitis, Other Hepatobiliary: No: Cirrhosis, Cholelithiasis, Cholecystitis, Choledocholithiasis , Hepatitis A, Hepatitis B, Hepatitis C, Other Renal/: No: Renal Failure, Renal Inusuff, BPH, Cancer, Hematuria, Hemodialysis , Neurogenic Bladder, Renal Calculi, UTI, Other Endocrine: Yes: Hypothyroidism Dermatology: No: Basal Cell, Cellulitis, Eczema, Melanoma, Psoriasis, Squamous Cell, Other - Past Surgical History Additional Surgical History: PPM - Alcohol/Substance Use Hx Alcohol Use: No - Smoking History Smoking history: Never smoked Have you smoked in the past 12 months: No - Social History History of Recent Travel: No Home Medications - Allergies Allergies/Adverse Reactions: Allergies Allergy/AdvReac Type Severity Reaction Status Date / Time No Known Allergies Allergy Verified 04/22/19 16:48 - Home Medications Home Medications: Ambulatory Orders Omeprazole [Prilosec (RX)] 20 mg PO DAILY #7 capsule 05/13/13 Simvastatin [Zocor] 20 mg PO HS #7 tablet 05/13/13 Carvedilol 25 mg PO BID 08/26/17 Losartan Potassium [Cozaar] 100 mg PO DAILY 08/26/17 Gabapentin 300 mg PO HS 04/22/19 Levothyroxine [Synthroid -] 50 mcg PO ASDIR 04/22/19 Levothyroxine [Synthroid -] 100 mcg PO ASDIR 04/22/19 Losartan Potassium 50 mg PO HS 04/22/19 Physical Exam-Neuro Vital Signs: Vital Signs Temperature 98.0 F 04/22/19 21:23 Pulse Rate 69 04/22/19 22:58 Respiratory Rate 16 04/22/19 22:58 Blood Pressure 150/85 04/22/19 22:58 O2 Sat by Pulse Oximetry (%) 99 04/23/19 01:00 Labs: CBC, BMP 04/23/19 05:58 04/23/19 05:58 Assessment/Plan cc Passing out episode HPI 64 year old female history of HTN, Hypothyroidism, Tachybrady syndrome . Patient has multiple blacking out episode. SHe has pacemaker and had it checked last month. SHe has episode of passing out. Patient denies tongue bite, incontinence. patient denies any focal neurological symptoms. She is signed out ama, as I examined. kendrick leary sstarted on gabapnetin and valtrex for shingles on right side neck and arm. PMH as above. PAST SURGICAL HISTORY: hysterectomy, thyroidectomy Social History: Smoking: denies Alcohol: denies Drugs:denies Allergies No Known Allergies Allergy (Verified 04/22/19 16:48) HOME MEDICATIONS: Home Medications Medication Instructions Recorded Omeprazole [Prilosec (RX)] 20 mg PO DAILY #7 capsule 05/13/13 Simvastatin [Zocor] 20 mg PO HS #7 tablet 05/13/13 Carvedilol 25 mg PO DAILY 08/26/17 Losartan Potassium [Cozaar] 100 mg PO DAILY 08/26/17 Gabapentin 100 mg PO DAILY 04/22/19 Gabapentin 300 mg PO PRN PRN 04/22/19 Levothyroxine [Synthroid -] 50 mcg PO ASDIR 04/22/19 Levothyroxine [Synthroid -] 100 mcg PO ASDIR 04/22/19 Losartan Potassium 50 mg PO HS 04/22/19 ROS,FH,SH reviewed in chart NEUROLOGICAL EXAMINATION Alert oriented x 3 neck is supple, speech is normal eomi, pupils reactive no face asymmetry moving all ext sensation is normal ct head showed white matter disease Assessment/plan Multiple syncope episode in past and came with syncopal episod, e unlikely to be tia or seizure. White matter disease of ct is incidental fidings. pLAN: CONTINUE ASPIRIN AND STATIN follow up outpatient supprotive care she is signing out ama, no need for EEG OR MRI of brain thanking you so much Lydia Shetty MD
[2019-04-23 13:31] VITALS: TEMP 98.2
[2019-04-23 13:34] VITALS: BP 134/77; PULSE 66
--- NOTE | 2019-04-23 13:45 | PN ---
Progress Note (short form) - Note Progress Note: SUBJECTIVE: Feels well - wants to go home. Denies headache/lightheadedness/ dizziness. No fever/chills. OBJECTIVE: Afberile, Hemodynamically Stable. Last Vital Signs Temp Pulse Resp BP Pulse Ox 98.2 F 66 18 134/77 99 04/23/19 10:00 04/23/19 10:00 04/23/19 10:00 04/23/19 10:00 04/23/19 01:00 HEENT - Atraumatic, Normocephalic Heart - S1, S2, RRR Lungs - clear to auscultation Abdomen - Soft, non-tender. Bowel Sounds normal. Extremities - no edema, no calf tenderness. RUE herpetic rash crusted, no erythema. Laboratory Results - last 24 hr 04/22/19 04/22/19 04/22/19 17:55 17:55 17:55 WBC 6.3 RBC 3.54 L Hgb 10.8 Hct 32.8 MCV 92.6 MCH 30.5 MCHC 33.0 RDW 13.6 Plt Count 169 MPV 8.8 Absolute Neuts (auto) 4.6 Neutrophils % 73.4 Lymphocytes % 18.9 Monocytes % 5.3 Eosinophils % 1.3 Basophils % 1.1 Nucleated RBC % 0 Sodium 143 Potassium 3.4 L Chloride 112 H Carbon Dioxide 22 Anion Gap 9 BUN 12.0 Creatinine 0.7 Est GFR (CKD-EPI)AfAm 106.12 Est GFR (CKD-EPI)NonAf 91.56 Random Glucose 91 Calcium 6.9 L* Phosphorus Magnesium 1.9 Total Bilirubin 0.6 AST 12 L ALT 14 Alkaline Phosphatase 55 Creatine Kinase 52 Troponin I < 0.02 Total Protein 5.6 L Albumin 2.8 L TSH Free T4 Urine Color Yellow Urine Appearance Clear Urine pH 5.5 Ur Specific [place] 1.009 L Urine Protein Negative Urine Glucose (UA) Negative Urine Ketones Negative Urine Blood Negative Urine Nitrite Negative Urine Bilirubin Negative Urine Urobilinogen 0.2 Ur Leukocyte Esterase Trace Urine WBC (Auto) 8 Urine RBC (Auto) 1 Urine Casts (Auto) 5 U Epithel Cells (Auto) 1.2 Urine Bacteria (Auto) 1.5 04/23/19 04/23/19 05:58 05:58 WBC 9.8 RBC 3.75 Hgb 11.7 Hct 34.2 MCV 91.2 MCH 31.2 MCHC 34.2 RDW 13.9 Plt Count 196 MPV 8.8 Absolute Neuts (auto) 7.1 Neutrophils % 72.5 Lymphocytes % 16.7 Monocytes % 6.2 Eosinophils % 4.2 D Basophils % 0.4 Nucleated RBC % 0 Sodium 139 Potassium 4.9 Chloride 108 H Carbon Dioxide 26 Anion Gap 4 L BUN 15.2 Creatinine 0.8 Est GFR (CKD-EPI)AfAm 90.30 Est GFR (CKD-EPI)NonAf 77.91 Random Glucose 114 H Calcium 8.6 Phosphorus 3.6 Magnesium 2.3 Total Bilirubin 1.0 AST 11 L ALT 16 Alkaline Phosphatase 63 Creatine Kinase Troponin I Total Protein 6.6 Albumin 3.3 L TSH 4.47 H Free T4 1.40 Urine Color Urine Appearance Urine pH Ur Specific [place] Urine Protein Urine Glucose (UA) Urine Ketones Urine Blood Urine Nitrite Urine Bilirubin Urine Urobilinogen Ur Leukocyte Esterase Urine WBC (Auto) Urine RBC (Auto) Urine Casts (Auto) U Epithel Cells (Auto) Urine Bacteria (Auto) Current Medications Generic Name Dose Route Start Last Admin Trade Name Freq PRN Reason Stop Dose Admin Atorvastatin Calcium 10 mg 04/22/19 22:00 04/22/19 22:59 Lipitor - PO 10 mg HS KELLEN Administration Carvedilol 25 mg 04/22/19 22:00 04/23/19 11:31 Coreg - PO 25 mg BID KELLEN Administration Gabapentin 300 mg 04/23/19 22:00 Neurontin - PO HS KELLEN Heparin Sodium (Porcine) 5,000 unit 04/23/19 06:00 04/23/19 06:21 Heparin - SQ 5,000 unit TID KELLEN Administration Sodium Chloride 1,000 mls @ 75 mls/hr 04/23/19 05:30 04/23/19 06:22 Normal Saline - IV 75 mls/hr ASDIR KELLEN Administration Levothyroxine Sodium 50 mcg 04/26/19 07:00 Synthroid - PO Navarro@0700 KELLEN Levothyroxine Sodium 100 mcg 04/23/19 07:00 04/23/19 07:04 Synthroid - PO 100 mcg [id number]@0700 KELLEN Administration Losartan Potassium 100 mg 04/23/19 10:00 04/23/19 11:32 Cozaar - PO 100 mg DAILY KELLEN Administration Losartan Potassium 50 mg 04/22/19 22:00 11/27/19 23:03 Cozaar - PO 50 mg HS KELLEN Administration Pantoprazole Sodium 20 mg 04/23/19 10:00 04/23/19 11:31 Protonix - PO 20 mg DAILY KELLEN Administration Valacyclovir HCl 1,000 mg 04/23/19 06:00 04/23/19 06:21 Valtrex - PO 04/23/19 22:01 1,000 mg TID KELLEN Administration Home Medications Medication Instructions Recorded Omeprazole [Prilosec (RX)] 20 mg PO DAILY #7 capsule 05/13/13 Simvastatin [Zocor] 20 mg PO HS #7 tablet 05/13/13 Carvedilol 25 mg PO BID 08/26/17 Losartan Potassium [Cozaar] 100 mg PO DAILY 08/26/17 Gabapentin 300 mg PO HS 04/22/19 Levothyroxine [Synthroid -] 50 mcg PO ASDIR 04/22/19 Levothyroxine [Synthroid -] 100 mcg PO ASDIR 04/22/19 Losartan Potassium 50 mg PO HS 04/22/19 ASSESSMENT/PLAN: 63 year old female with history of HTN, Hypothyrosidim, Sick Sinus Syndrome s/p PPM, history of recurrent syncope, admitted with syncopal event with preceding nausea/vomiting. No head injury. 1. Recurrent Syncope, etiology unclear, secondary to arrhythmia vs vasovagal event Orthostatics negative (checked after IV hydration) Echo requested. Cartotid Duplex - No evidence of hemodynamically significant stenosis. CT Brain - extensive periventricular low atenuation signals consistent with worsening chorni c microvascular ischemic changes versus demyelination - recommend MRI. MRI unable to be performed at [facility] due to PPM Neurology consulted. Cardiology consulted - recommend PPM interrogation. 2. Electrolyte abnormalities - Hypokalemia, Hypocalcemia - repleted. s/p history of Thyroidectomy. Will request ionized calcium, PTH, Vitamin D 3. Hypothyroidism s/p Thyroidectomy TSH 4.47. Continue Synthroid. Endocrinology follow up. 4. HTN - Continue Losartan, Carvedilol 5. HLD - continue Statin 6. Shingles - resolving s/p 10 days valtrex Rx. Neurontin qHS. DVT Px - Heparin SQ Visit type - Emergency Visit Emergency Visit: Yes ED Registration Date: 04/22/19 Care time: The patient presented to the Emergency Department on the above date and was hospitalized for further evaluation of their emergent condition. - New Patient This patient is new to me today: Yes Date on this admission: 04/23/19 - Critical Care Critical Care patient: No - Discharge Referral Referred to [facility] Med P.C.: No
--- NOTE | 2019-04-23 14:04 | DS ---
Physical Exam: SUBJECTIVE: Feels well - wants to go home. Denies headache/lightheadedness/ dizziness. No fever/chills. OBJECTIVE: Afberile, Hemodynamically Stable. Last Vital Signs Temp Pulse Resp BP Pulse Ox 98.2 F 66 18 134/77 99 04/23/19 10:00 04/23/19 10:00 04/23/19 10:00 04/23/19 10:00 04/23/19 01:00 HEENT - Atraumatic, Normocephalic Heart - S1, S2, RRR Lungs - clear to auscultation Abdomen - Soft, non-tender. Bowel Sounds normal. Extremities - no edema, no calf tenderness. RUE herpetic rash crusted, no erythema. Laboratory Results - last 24 hr 04/22/19 04/22/19 04/22/19 17:55 17:55 17:55 WBC 6.3 RBC 3.54 L Hgb 10.8 Hct 32.8 MCV 92.6 MCH 30.5 MCHC 33.0 RDW 13.6 Plt Count 169 MPV 8.8 Absolute Neuts (auto) 4.6 Neutrophils % 73.4 Lymphocytes % 18.9 Monocytes % 5.3 Eosinophils % 1.3 Basophils % 1.1 Nucleated RBC % 0 Sodium 143 Potassium 3.4 L Chloride 112 H Carbon Dioxide 22 Anion Gap 9 BUN 12.0 Creatinine 0.7 Est GFR (CKD-EPI)AfAm 106.12 Est GFR (CKD-EPI)NonAf 91.56 Random Glucose 91 Calcium 6.9 L* Phosphorus Magnesium 1.9 Total Bilirubin 0.6 AST 12 L ALT 14 Alkaline Phosphatase 55 Creatine Kinase 52 Troponin I < 0.02 Total Protein 5.6 L Albumin 2.8 L TSH Free T4 Urine Color Yellow Urine Appearance Clear Urine pH 5.5 Ur Specific [place] 1.009 L Urine Protein Negative Urine Glucose (UA) Negative Urine Ketones Negative Urine Blood Negative Urine Nitrite Negative Urine Bilirubin Negative Urine Urobilinogen 0.2 Ur Leukocyte Esterase Trace Urine WBC (Auto) 8 Urine RBC (Auto) 1 Urine Casts (Auto) 5 U Epithel Cells (Auto) 1.2 Urine Bacteria (Auto) 1.5 04/23/19 04/23/19 05:58 05:58 WBC 9.8 RBC 3.75 Hgb 11.7 Hct 34.2 MCV 91.2 MCH 31.2 MCHC 34.2 RDW 13.9 Plt Count 196 MPV 8.8 Absolute Neuts (auto) 7.1 Neutrophils % 72.5 Lymphocytes % 16.7 Monocytes % 6.2 Eosinophils % 4.2 D Basophils % 0.4 Nucleated RBC % 0 Sodium 139 Potassium 4.9 Chloride 108 H Carbon Dioxide 26 Anion Gap 4 L BUN 15.2 Creatinine 0.8 Est GFR (CKD-EPI)AfAm 90.30 Est GFR (CKD-EPI)NonAf 77.91 Random Glucose 114 H Calcium 8.6 Phosphorus 3.6 Magnesium 2.3 Total Bilirubin 1.0 AST 11 L ALT 16 Alkaline Phosphatase 63 Creatine Kinase Troponin I Total Protein 6.6 Albumin 3.3 L TSH 4.47 H Free T4 1.40 Urine Color Urine Appearance Urine pH Ur Specific [place] Urine Protein Urine Glucose (UA) Urine Ketones Urine Blood Urine Nitrite Urine Bilirubin Urine Urobilinogen Ur Leukocyte Esterase Urine WBC (Auto) Urine RBC (Auto) Urine Casts (Auto) U Epithel Cells (Auto) Urine Bacteria (Auto) Current Medications Generic Name Dose Route Start Last Admin Trade Name Fredy PRN Reason Stop Dose Admin Atorvastatin Calcium 10 mg 04/22/19 22:00 04/22/19 22:59 Lipitor - PO 10 mg HS KELLEN Administration Carvedilol 25 mg 04/22/19 22:00 04/23/19 11:31 Coreg - PO 25 mg BID KELLEN Administration Gabapentin 300 mg 04/23/19 22:00 Neurontin - PO HS KELLEN Heparin Sodium (Porcine) 5,000 unit 04/23/19 06:00 04/23/19 06:21 Heparin - SQ 5,000 unit TID KELLEN Administration Sodium Chloride 1,000 mls @ 75 mls/hr 04/23/19 05:30 04/23/19 06:22 Normal Saline - IV 75 mls/hr ASDIR KELLEN Administration Levothyroxine Sodium 50 mcg 04/26/19 07:00 Synthroid - PO Navarro@0700 KELLEN Levothyroxine Sodium 100 mcg 04/23/19 07:00 04/23/19 07:04 Synthroid - PO 100 mcg [id number]@0700 KELLEN Administration Losartan Potassium 100 mg 04/23/19 10:00 04/23/19 11:32 Cozaar - PO 100 mg DAILY KELLEN Administration Losartan Potassium 50 mg 04/22/19 22:00 04/22/19 23:03 Cozaar - PO 50 mg HS KELLEN Administration Pantoprazole Sodium 20 mg 04/23/19 10:00 04/23/19 11:31 Protonix - PO 20 mg DAILY KELLEN Administration Valacyclovir HCl 1,000 mg 04/23/19 06:00 04/23/19 06:21 Valtrex - PO 04/23/19 22:01 1,000 mg TID KELLEN Administration Home Medications Medication Instructions Recorded Omeprazole [Prilosec (RX)] 20 mg PO DAILY #7 capsule 05/13/13 Simvastatin [Zocor] 20 mg PO HS #7 tablet 05/13/13 Carvedilol 25 mg PO BID 08/26/17 Losartan Potassium [Cozaar] 100 mg PO DAILY 08/26/17 Gabapentin 300 mg PO HS 04/22/19 Levothyroxine [Synthroid -] 50 mcg PO ASDIR 04/22/19 Levothyroxine [Synthroid -] 100 mcg PO ASDIR 04/22/19 Losartan Potassium 50 mg PO HS 04/22/19 Date of Admission:04/22/19 LEFT AMA: 04/23/19 Minutes to complete discharge: 40 Discharge Summary Problems reviewed: Yes Reason For Visit: Syncope Current Active Problems Syncope (Acute) Hospital Course: 63 year old female with history of HTN, Hypothyrosidim, Sick Sinus Syndrome s/p PPM, history of recurrent syncope, admitted with syncopal event with preceding nausea/vomiting. No head injury. Planned investigations as below. However, patient wanted to leave. She was advised the risks of doing so including syncope , head injury, disability and . she understood the risks and accepted responsibility for them. She was urged to follow with her PCP and [employer] [facility] Dr[facility] Hines at [facility]. 1. Recurrent Syncope, etiology unclear, secondary to arrhythmia vs vasovagal event Orthostatics negative (checked after IV hydration) Echo requested. Cartotid Duplex - No evidence of hemodynamically significant stenosis. CT Brain - extensive periventricular low atenuation signals consistent with worsening chronic microvascular ischemic changes versus demyelination versus leukoencephalomalacia - MRI recommended. MRI unable to be performed at [facility] due to PPM Neurology consulted. Cardiology consulted - recommend PPM interrogation. 2. Electrolyte abnormalities - Hypokalemia, Hypocalcemia - repleted. s/p history of Thyroidectomy. Ionized calcium, PTH, Vitamin D levels requested 3. Hypothyroidism s/p Thyroidectomy TSH 4.47. Continue Synthroid. Endocrinology follow up. 4. HTN - Continue Losartan, Carvedilol 5. HLD - continue Statin 6. Shingles - resolving s/p 10 days valtrex Rx. Neurontin qHS. DVT Px - Heparin SQ Condition: Stable - Instructions Disposition: AGAINST MEDICAL ADVICE - Home Medications Comprehensive Discharge Medication List: Ambulatory Orders Omeprazole [Prilosec (RX)] 20 mg PO DAILY #7 capsule 05/13/13 Simvastatin [Zocor] 20 mg PO HS #7 tablet 05/13/13 Carvedilol 25 mg PO BID 08/26/17 Losartan Potassium [Cozaar] 100 mg PO DAILY 08/26/17 Gabapentin 300 mg PO HS 04/22/19 Levothyroxine [Synthroid -] 50 mcg PO ASDIR 04/22/19 Levothyroxine [Synthroid -] 100 mcg PO ASDIR 04/22/19 Losartan Potassium 50 mg PO HS 04/22/19 This patient is new to me today: Yes Date on this admission: 04/23/19 Emergency Visit: Yes ED Registration Date: 04/22/19 Care time: The patient presented to the Emergency Department on the above date and was hospitalized for further evaluation of their emergent condition. Critical Care patient: No - Discharge Referral Referred to [facility] No
[2019-04-23] MEDS ORDERED: GABAPENTIN 300 MG CAPSULE (FP) PO SCH (22:00)
[2019-04-26] MEDS ORDERED: LEVOTHYROXINE NA 50 MCG TABLET (FP) PO SCH (07:00)
== END 2019-04-23 14:10 | disposition left against medical advice (07) ==
LOC: JER 16:02 → JERBED 20:41 → J2W 04-23 08:42
PROVIDERS: ADMIT Internal Medicine
PROC: 3E033GC Introduction of Other Therapeutic Substance into Peripheral Vein, Percutaneous Approach (ICD-10-PCS; principal; 2019-04-22)
PROC: 3E023GC Introduction of Other Therapeutic Substance into Muscle, Percutaneous Approach (ICD-10-PCS; 2019-04-22)
DX: R55 Syncope and collapse (principal); E87.6 Hypokalemia; E83.51 Hypocalcemia; E89.0 Postprocedural hypothyroidism; I10 Essential (primary) hypertension; I49.5 Sick sinus syndrome; B02.9 Zoster without complications; Z95.0 Presence of cardiac pacemaker
CPT/HCPCS: 36415; 70450-TC; 71045-TC-FY; 80053; 81003; 82550; 83735; 84100; 84439; 84443; 84484; 85025; 93005; 93010; 93880-TC; 99285-25; G0378; J1644; J7030

== ENCOUNTER 2021-06-24 14:20 | Inpatient (IN) | payer OTHER, BC ==
[2021-06-24 14:48] VITALS: BMI 25.9
[2021-06-24 16:14] LABS: BASO % 0.1 % (0-2.0); HEMOGLOBIN 12.8 GM/dL (10.7-15.3); LYMPH % 7.6 % (8-40); MCH 29.9 pg (25.7-33.7); MCHC 32.8 g/dl (32.0-36.0); MEAN CELL VOLUME 91.3 fl (80-96); MEAN PLT VOLUME 10.7 fl (7.5-11.1); MONO % 6.3 % (3.8-10.2); PLATELET COUNT 135 10^3/uL (134-434); RBC 4.27 M/mm3 (3.60-5.2); RDW 14.1 % (11.6-15.6); WHITE BLOOD COUNT 9.9 K/mm3 (4.0-10.0)
[2021-06-24 16:25] LABS: VENOUS BASE EXCESS -4.4 mmol/L (-2-2); VENOUS O2 SATURATION 43.7 % (70-80); VENOUS PCO2 39.6 mmHg (38-52); VENOUS PH 7.341 (7.310-7.410)
[2021-06-24 16:32] LABS: BLOOD UREA NITROGEN 38.3 mg/dL (7-18); CALCIUM 8.4 mg/dL (8.5-10.1)
[2021-06-24 16:33] LABS: ALBUMIN 3.5 g/dl (3.4-5.0)
[2021-06-24 16:37] LABS: BILIRUBIN,TOTAL 2.3 mg/dL (0.2-1); TOT PROT 7.1 g/dl (6.4-8.2)
[2021-06-24] MEDS ORDERED: FUROSEMIDE 40 MG/4 ML INJECTABLE VIAL IVPUSH ONE ×2 (17:23→21:34)
[2021-06-24] MEDS ORDERED: FUROSEMIDE 40 MG/4 ML INJECTABLE VIAL ONE (17:30)
[2021-06-24 17:38] LABS: N-TERMINAL BNP 17765.5 pg/ml (5-125)
[2021-06-24] MEDS ORDERED: ACETAMINOPHEN 325 MG TABLET (FP) PO PRN (21:24)
[2021-06-24] MEDS ORDERED: FUROSEMIDE 40 MG/4 ML INJECTABLE VIAL IVPUSH SCH (21:45)
[2021-06-24] MEDS ORDERED: INSULIN SLIDING SCALE (NOVOLOG) 1 VIAL SQ SCH (22:00)
[2021-06-24] MEDS ORDERED: TRIMETHOBENZAMIDE HCL 300 MG CAPSULE PO PRN (22:17)
[2021-06-24] MEDS: HEPARIN NA (PORCINE) 5,000 UNITS/ML 1ML VIAL SQ SCH (22:40)
[2021-06-24] MEDS: FAMOTIDINE 20 MG TABLET PO SCH (22:40)
[2021-06-24] MEDS ORDERED: CEFTRIAXONE 1 GM in DEXTROSE 5%-WATER - 50 ML IVPB ONE (23:00)
[2021-06-24] MEDS ORDERED: DEXTROSE 5%-WATER - 50 ML IVPB ONE (23:38)
[2021-06-24] MEDS ORDERED: cefTRIAXone SODIUM 1 GM VIAL ONE (23:38)
[2021-06-24] MEDS: INSULIN SLIDING SCALE (NOVOLOG) 1 VIAL SQ SCH (23:51)
[2021-06-25 00:34] LABS: LACTIC ACID 2.5 mmol/L (0.4-2.0)
[2021-06-25] MEDS ORDERED: LEVOTHYROXINE NA 88 MCG TABLET (FP) PO SCH (06:00)
[2021-06-25] MEDS: HEPARIN NA (PORCINE) 5,000 UNITS/ML 1ML VIAL SQ SCH ×3 (06:23→21:04)
[2021-06-25] MEDS: FUROSEMIDE 40 MG/4 ML INJECTABLE VIAL IVPUSH SCH ×2 (06:24→13:45)
[2021-06-25] MEDS: INSULIN SLIDING SCALE (NOVOLOG) 1 VIAL SQ SCH ×4 (06:41→21:03)
[2021-06-25] MEDS ORDERED: LEVOTHYROXINE NA 88 MCG TABLET (FP) PO ONE (07:00)
[2021-06-25 08:23] LABS: BASO % 0.3 % (0-2.0); LYMPH % 13.6 % (8-40); MCH 30.1 pg (25.7-33.7); MCHC 33.2 g/dl (32.0-36.0); MEAN CELL VOLUME 90.7 fl (80-96); MEAN PLT VOLUME 10.9 fl (7.5-11.1); MONO % 9.5 % (3.8-10.2); NEUT % 76.6 % (42.8-82.8); PLATELET COUNT 117 10^3/uL (134-434); RBC 3.97 M/mm3 (3.60-5.2); RDW 13.9 % (11.6-15.6); WHITE BLOOD COUNT 10.1 K/mm3 (4.0-10.0)
[2021-06-25 08:43] LABS: CALCIUM 8.2 mg/dL (8.5-10.1)
[2021-06-25 08:44] LABS: ALBUMIN 3.3 g/dl (3.4-5.0); BLOOD UREA NITROGEN 45.8 mg/dL (7-18)
[2021-06-25 08:47] LABS: CREATININE 1.7 mg/dL (0.55-1.3)
[2021-06-25 08:48] LABS: BILIRUBIN,TOTAL 1.6 mg/dL (0.2-1); TOT PROT 6.7 g/dl (6.4-8.2)
[2021-06-25 10:10] LABS: EPI CELLS 5 /uL (0-25.1); HYALINE CASTS 2 /uL (0-3.1); URINE APPEARANCE CLEAR; URINE BACTERIA 10 /uL (0-1359); URINE BILIRUBIN NEGATIVE (NEGATIVE); URINE COLOR YELLOW; URINE GLUCOSE (UA) NEGATIVE (NEGATIVE); URINE KETONE NEGATIVE (NEGATIVE); URINE LEUK ESTERASE TRACE (NEGATIVE); URINE NITRITE NEGATIVE (NEGATIVE); URINE PROTEIN NEGATIVE (NEGATIVE); URINE RBC 4 /uL (0-23.9); URINE UROBILINOGEN 0.2 mg/dL (0.2-1.0); URINE WBC 47 /uL (0-25.8)
[2021-06-25] MEDS: FAMOTIDINE 20 MG TABLET PO SCH (13:25)
[2021-06-25] MEDS: AZITHROMYCIN IVPB 500 MG/250 ML BAG IVPB SCH (13:25)
[2021-06-25] MEDS ORDERED: ONDANSETRON 4 MG/2 ML VIAL IVPUSH ONE (19:08)
[2021-06-25] MEDS: CARVEDILOL 3.125 MG TABLET (FP) PO SCH (21:01)
[2021-06-25 21:08] LABS: BILIRUBIN,DIRECT 0.3 mg/dL (0.0-0.2)
[2021-06-25] MEDS ORDERED: CEFTRIAXONE 1 GM in DEXTROSE 5%-WATER - 50 ML IVPB ONE (21:15)
[2021-06-25] MEDS ORDERED: cefTRIAXone SODIUM 1 GM VIAL ONE (21:30)
[2021-06-25] MEDS ORDERED: DEXTROSE 5%-WATER - 50 ML IVPB ONE (21:30)
[2021-06-26] MEDS: FUROSEMIDE 40 MG/4 ML INJECTABLE VIAL IVPUSH SCH (06:23)
[2021-06-26] MEDS: HEPARIN NA (PORCINE) 5,000 UNITS/ML 1ML VIAL SQ SCH ×3 (06:24→22:44)
[2021-06-26] MEDS: INSULIN SLIDING SCALE (NOVOLOG) 1 VIAL SQ SCH ×4 (06:24→22:52)
[2021-06-26] MEDS ORDERED: LEVOTHYROXINE NA 100 MCG TABLET (FP) PO SCH (07:00)
[2021-06-26 07:33] LABS: CALCIUM 8.6 mg/dL (8.5-10.1)
[2021-06-26 07:34] LABS: ALBUMIN 3.3 g/dl (3.4-5.0); BLOOD UREA NITROGEN 57.2 mg/dL (7-18)
[2021-06-26 07:36] LABS: PHOSPHOROUS 4.5 mg/dL (2.5-4.9)
[2021-06-26 07:37] LABS: CREATININE 1.7 mg/dL (0.55-1.3)
[2021-06-26 07:38] LABS: BILIRUBIN,TOTAL 1.4 mg/dL (0.2-1); TOT PROT 6.9 g/dl (6.4-8.2)
[2021-06-26 07:42] LABS: HEMATOCRIT 35.9 % (32.4-45.2); HEMOGLOBIN 12.2 GM/dL (10.7-15.3); MCH 30.5 pg (25.7-33.7); MCHC 33.9 g/dl (32.0-36.0); MEAN CELL VOLUME 90.1 fl (80-96); MEAN PLT VOLUME 10.5 fl (7.5-11.1); PLATELET COUNT 123 10^3/uL (134-434); RBC 3.99 M/mm3 (3.60-5.2); RDW 14.2 % (11.6-15.6); URIC ACID 11.3 mg/dL (2.6-7.2); WHITE BLOOD COUNT 8.6 K/mm3 (4.0-10.0)
[2021-06-26] MEDS ORDERED: cefTRIAXone SODIUM 1 GM VIAL ONE (11:13)
[2021-06-26] MEDS ORDERED: DEXTROSE 5%-WATER - 50 ML IVPB ONE (11:13)
[2021-06-26] MEDS: CEFTRIAXONE 1 GM in DEXTROSE 5%-WATER - 50 ML IVPB SCH (11:19)
[2021-06-26] MEDS: AZITHROMYCIN IVPB 500 MG/250 ML BAG IVPB SCH (11:20)
[2021-06-26] MEDS: FAMOTIDINE 20 MG TABLET PO SCH (11:20)
[2021-06-26] MEDS: CARVEDILOL 3.125 MG TABLET (FP) PO SCH ×2 (11:20→22:43)
[2021-06-26] MEDS: ASPIRIN 81 MG CHEWABLE TABLETS PO SCH (11:20)
[2021-06-26] MEDS ORDERED: SODIUM CHLORIDE 500 ML IV STA (13:21)
[2021-06-26] MEDS ORDERED: FUROSEMIDE INJECTION 100 MG in SODIUM CHLORIDE 40 ML IVPB SCH (14:00)
[2021-06-26] MEDS: POLYETHYLENE GLYCOL (HEALTHYLAX) 3350 17 GM PACKET PO SCH ×2 (17:44→22:43)
[2021-06-26] MEDS ORDERED: ATORVASTATIN CA 10 MG TABLET (FP) PO SCH (22:00)
[2021-06-27] MEDS: HEPARIN NA (PORCINE) 5,000 UNITS/ML 1ML VIAL SQ SCH (06:44)
[2021-06-27] MEDS: INSULIN SLIDING SCALE (NOVOLOG) 1 VIAL SQ SCH (06:48)
[2021-06-27] MEDS ORDERED: LEVOTHYROXINE NA 100 MCG TABLET (FP) PO SCH (07:00)
[2021-06-27 07:25] LABS: BASO % 0.6 % (0-2.0); EOS % 0.8 % (0-4.5); HEMOGLOBIN 11.5 GM/dL (10.7-15.3); LYMPH % 18.1 % (8-40); MCHC 32.7 g/dl (32.0-36.0); MEAN CELL VOLUME 91.8 fl (80-96); MEAN PLT VOLUME 10.6 fl (7.5-11.1); MONO % 11.8 % (3.8-10.2); NEUT % 68.7 % (42.8-82.8); PLATELET COUNT 146 10^3/uL (134-434); RBC 3.81 M/mm3 (3.60-5.2); RDW 13.8 % (11.6-15.6); WHITE BLOOD COUNT 6.5 K/mm3 (4.0-10.0)
[2021-06-27 07:51] LABS: CALCIUM 8.2 mg/dL (8.5-10.1)
[2021-06-27 07:52] LABS: BLOOD UREA NITROGEN 54.6 mg/dL (7-18); MAGNESIUM 2.9 mg/dL (1.8-2.4)
[2021-06-27 07:55] LABS: CREATININE 1.3 mg/dL (0.55-1.3); PHOSPHOROUS 4.1 mg/dL (2.5-4.9)
[2021-06-27] MEDS ORDERED: cefTRIAXone SODIUM 1 GM VIAL ONE (09:30)
[2021-06-27] MEDS ORDERED: DEXTROSE 5%-WATER - 50 ML IVPB ONE (09:30)
[2021-06-27] MEDS: FAMOTIDINE 20 MG TABLET PO SCH (09:45)
[2021-06-27] MEDS: ASPIRIN 81 MG CHEWABLE TABLETS PO SCH (09:45)
[2021-06-27] MEDS: POLYETHYLENE GLYCOL (HEALTHYLAX) 3350 17 GM PACKET PO SCH (09:45)
[2021-06-27] MEDS: CARVEDILOL 3.125 MG TABLET (FP) PO SCH (09:46)
[2021-06-27] MEDS: CEFTRIAXONE 1 GM in DEXTROSE 5%-WATER - 50 ML IVPB SCH (09:46)
[2021-06-27] MEDS: AZITHROMYCIN IVPB 500 MG/250 ML BAG IVPB SCH (09:48)
[2021-06-27 09:49] VITALS: TEMP 97.8
[2021-06-27] MEDS ORDERED: FUROSEMIDE 40 MG/4 ML INJECTABLE VIAL IVPUSH SCH (10:00)
[2021-06-27 11:05] VITALS: BP 93/63; PULSE 62
[2021-07-01] MEDS ORDERED: LEVOTHYROXINE NA 88 MCG TABLET (FP) PO SCH (07:00)
== END 2021-06-27 11:43 | disposition short-term general hospital (02) | DRG 291 ==
LOC: JER 14:20 → JERBED 18:20 → J4W 20:51
PROVIDERS: ADMIT Internal Medicine; ATTEND Internal Medicine
DX: I11.0 Hypertensive heart disease with heart failure (principal); J96.01 Acute respiratory failure with hypoxia; I50.33 Acute on chronic diastolic (congestive) heart failure; N17.9 Acute kidney failure, unspecified; K86.9 Disease of pancreas, unspecified; E78.5 Hyperlipidemia, unspecified; E03.9 Hypothyroidism, unspecified; I25.119 Atherosclerotic heart disease of native coronary artery with unspecified angina pectoris; E87.70 Fluid overload, unspecified
CPT/HCPCS: 36415; 71045-TC-FY; 71250-TC; 74176-TC; 76705-TC; 80048; 80053; 80061; 81003; 82010; 82248; 82550; 82570; 82728; 82803; 82962; 83036; 83605; 83615; 83735; 83880; 84100; 84156; 84300; 84439; 84443; 84484; 84540; 84550; 85025; 85027; 85379; 86140; 86301; 87040; 87086; 87899; 93005; 93010; 93306-TC; 94660; 99285-25; C9803; J1644; U0003; U0005

== ENCOUNTER 2021-11-08 22:37 | Inpatient (IN) | payer OTHER, BC ==
[2021-11-08] MEDS ORDERED: SODIUM CHLORIDE 0.9% 500 ML INFUS.BAG IV ONE (23:28)
[2021-11-08] MEDS ORDERED: ACETAMINOPHEN 1000 MG/100 ML BAG IVPB ONE (23:28)
[2021-11-09 00:16] LABS: BASO % 0.3 % (0-2.0); EOS % 0.1 % (0-4.5); HEMATOCRIT 33.3 % (32.4-45.2); HEMOGLOBIN 11.1 GM/dL (10.7-15.3); MCH 29.2 pg (25.7-33.7); MCHC 33.5 g/dl (32.0-36.0); MEAN CELL VOLUME 87.4 fl (80-96); NEUT % 82.6 % (42.8-82.8); PLATELET COUNT 158 10^3/uL (134-434); RBC 3.81 M/mm3 (3.60-5.2); RDW 15.7 % (11.6-15.6); VENOUS BASE EXCESS 2.6 mmol/L (-2-2); VENOUS O2 SATURATION 97.8 % (70-80); VENOUS PCO2 32.3 mmHg (38-52); VENOUS PH 7.509 (7.310-7.410); WHITE BLOOD COUNT 9.6 K/mm3 (4.0-10.0)
[2021-11-09] MEDS ORDERED: ACETAMINOPHEN INJECTION 100 ML IVPB ONE (00:19)
[2021-11-09 00:24] LABS: INR 1.71 (0.83-1.09); PROTHROMBIN TIME (PATIENT) 19.8 SEC (9.7-13.0)
[2021-11-09 00:27] LABS: ACTIVATED PTT 28.6 SECONDS (25.2-36.5)
[2021-11-09 00:42] LABS: CHLORIDE 100 mmol/L (98-107); SODIUM 135 mmol/L (136-145)
[2021-11-09 00:44] LABS: ALBUMIN 2.8 g/dl (3.4-5.0); ANION GAP 8 MMOL/L (8-16); BLOOD UREA NITROGEN 17.4 mg/dL (7-18); CALCIUM 8.5 mg/dL (8.5-10.1); CO2 28 mmol/L (21-32)
[2021-11-09 00:45] LABS: GLUCOSE,RANDOM 121 mg/dL (74-106)
[2021-11-09 00:47] LABS: CREATININE 0.9 mg/dL (0.55-1.3); SGPT/ALT 31 U/L (13-61)
[2021-11-09 00:48] LABS: SGOT/AST 39 U/L (15-37)
[2021-11-09 00:49] LABS: BILIRUBIN,TOTAL 1.4 mg/dL (0.2-1); TOT PROT 6.9 g/dl (6.4-8.2)
[2021-11-09 00:50] LABS: ALK PHOS 79 U/L (45-117)
[2021-11-09] MEDS ORDERED: SODIUM CHLORIDE 0.9% 500 ML INFUS.BAG IV ONE (02:39)
[2021-11-09] MEDS ORDERED: metroNIDAZOLE 250 MG TABLET PO ONE (06:30)
[2021-11-09] MEDS ORDERED: SODIUM CHLORIDE 1,000 ML IV SCH ×2 (08:30→09:15)
[2021-11-09 08:34] LABS: EPI CELLS 32 /uL (0-25.1); HYALINE CASTS 7 /uL (0-3.1); PH,URINE 5.5 (5.0-8.0); URINE APPEARANCE CLEAR; URINE BACTERIA 39 /uL (0-1359); URINE BILIRUBIN NEGATIVE (NEGATIVE); URINE COLOR YELLOW; URINE GLUCOSE (UA) NEGATIVE (NEGATIVE); URINE KETONE TRACE (NEGATIVE); URINE LEUK ESTERASE NEGATIVE (NEGATIVE); URINE NITRITE NEGATIVE (NEGATIVE); URINE PROTEIN 1+ (NEGATIVE); URINE RBC 4 /uL (0-23.9); URINE UROBILINOGEN 0.2 mg/dL (0.2-1.0); URINE WBC 48 /uL (0-25.8)
[2021-11-09] MEDS ORDERED: CARVEDILOL 25 MG TABLET (FP) ONE (10:10)
[2021-11-09] MEDS ORDERED: APIXABAN 5 MG TABLET ONE ×2 (10:10→23:59)
[2021-11-09] MEDS: LEVOTHYROXINE NA 112 MCG TABLET (FP) PO SCH (10:13)
[2021-11-09] MEDS: CARVEDILOL 25 MG TABLET (FP) PO SCH (10:13)
[2021-11-09] MEDS: APIXABAN 5 MG TABLET PO SCH ×2 (10:13→23:45)
[2021-11-09] MEDS: VANCOMYCIN 250 MG/5 ML ORAL SOLUTION PO SCH (19:00)
[2021-11-10] MEDS: CARVEDILOL 25 MG TABLET (FP) PO SCH ×3 (00:06→22:14)
[2021-11-10] MEDS: VANCOMYCIN 250 MG/5 ML ORAL SOLUTION PO SCH ×5 (01:00→18:22)
[2021-11-10 03:55] VITALS: BMI 21.2
[2021-11-10] MEDS: LEVOTHYROXINE NA 112 MCG TABLET (FP) PO SCH (06:23)
[2021-11-10 08:57] LABS: HEMATOCRIT 25.8 % (32.4-45.2); HEMOGLOBIN 8.6 GM/dL (10.7-15.3); MCH 29.5 pg (25.7-33.7); MCHC 33.3 g/dl (32.0-36.0); MEAN CELL VOLUME 88.4 fl (80-96); MEAN PLT VOLUME 9.8 fl (7.5-11.1); PLATELET COUNT 125 10^3/uL (134-434); RBC 2.92 M/mm3 (3.60-5.2); RDW 15.5 % (11.6-15.6); WHITE BLOOD COUNT 4.2 K/mm3 (4.0-10.0)
[2021-11-10] MEDS: APIXABAN 5 MG TABLET PO SCH ×2 (09:14→22:14)
[2021-11-10 09:25] LABS: CALCIUM 7.8 mg/dL (8.5-10.1)
[2021-11-10 09:26] LABS: BLOOD UREA NITROGEN 11.7 mg/dL (7-18)
[2021-11-10 09:29] LABS: CREATININE 0.5 mg/dL (0.55-1.3)
[2021-11-10 09:30] LABS: BILIRUBIN,TOTAL 0.7 mg/dL (0.2-1)
[2021-11-10 09:40] LABS: ALBUMIN 2.2 g/dl (3.4-5.0)
[2021-11-10 09:49] LABS: ANISOCYTOSIS 2+; MACROCYTOSIS 0
[2021-11-10] MEDS ORDERED: ACETAMINOPHEN 325 MG TABLET (FP) PO PRN (11:23)
[2021-11-10] MEDS ORDERED: LACTATED RINGERS SOLUTION 1,000 ML/1,000 ML INFUS.BAG IV SCH (11:30)
[2021-11-10] MEDS: POTASSIUM CHLORIDE TABS 20 MEQ TABLET.ER (FP) PO SCH ×2 (12:31→22:14)
[2021-11-10] MEDS ORDERED: ONDANSETRON 4 MG/2 ML VIAL IVPUSH PRN (13:21)
[2021-11-10 15:05] LABS: RETICULOCYTES 1.63 % (0.5-1.5)
[2021-11-10] MEDS ORDERED: IRON SUCROSE INJECTION 200 MG in SODIUM CHLORIDE 90 ML IVPB ONE (16:18)
[2021-11-11] MEDS: VANCOMYCIN 250 MG/5 ML ORAL SOLUTION PO SCH ×5 (00:08→23:55)
[2021-11-11] MEDS: LEVOTHYROXINE NA 112 MCG TABLET (FP) PO SCH (06:32)
[2021-11-11] MEDS: CARVEDILOL 25 MG TABLET (FP) PO SCH ×2 (09:21→21:04)
[2021-11-11] MEDS: APIXABAN 5 MG TABLET PO SCH ×2 (09:21→21:05)
[2021-11-11 14:51] LABS: HEMATOCRIT 30.2 % (32.4-45.2); MCH 29.5 pg (25.7-33.7); MCHC 33.1 g/dl (32.0-36.0); MEAN PLT VOLUME 9.5 fl (7.5-11.1); PLATELET COUNT 162 10^3/uL (134-434); RBC 3.39 M/mm3 (3.60-5.2); RDW 15.5 % (11.6-15.6); WHITE BLOOD COUNT 3.9 K/mm3 (4.0-10.0)
[2021-11-11 15:17] LABS: CALCIUM 8.6 mg/dL (8.5-10.1)
[2021-11-11 15:18] LABS: ALBUMIN 2.6 g/dl (3.4-5.0); BLOOD UREA NITROGEN 7.1 mg/dL (7-18); MAGNESIUM 1.9 mg/dL (1.8-2.4)
[2021-11-11 15:21] LABS: CREATININE 0.7 mg/dL (0.55-1.3); PHOSPHOROUS 2.8 mg/dL (2.5-4.9)
[2021-11-11 15:22] LABS: BILIRUBIN,TOTAL 0.7 mg/dL (0.2-1); TOT PROT 6.1 g/dl (6.4-8.2)
[2021-11-11] MEDS: POTASSIUM CHLORIDE TABS 20 MEQ TABLET.ER (FP) PO SCH ×2 (17:12→21:04)
[2021-11-12] MEDS: VANCOMYCIN 250 MG/5 ML ORAL SOLUTION PO SCH ×2 (05:36→11:47)
[2021-11-12] MEDS: LEVOTHYROXINE NA 112 MCG TABLET (FP) PO SCH (06:04)
[2021-11-12 07:02] LABS: HEMATOCRIT 27.1 % (32.4-45.2); HEMOGLOBIN 8.9 GM/dL (10.7-15.3); MCH 29.1 pg (25.7-33.7); MEAN CELL VOLUME 88.3 fl (80-96); MEAN PLT VOLUME 9.4 fl (7.5-11.1); PLATELET COUNT 146 10^3/uL (134-434); RBC 3.06 M/mm3 (3.60-5.2); RDW 15.4 % (11.6-15.6); WHITE BLOOD COUNT 4.2 K/mm3 (4.0-10.0)
[2021-11-12 07:21] LABS: ALBUMIN 2.2 g/dl (3.4-5.0); CALCIUM 7.9 mg/dL (8.5-10.1); MAGNESIUM 1.7 mg/dL (1.8-2.4)
[2021-11-12 07:24] LABS: CREATININE 0.6 mg/dL (0.55-1.3); PHOSPHOROUS 3.1 mg/dL (2.5-4.9)
[2021-11-12 07:26] LABS: BILIRUBIN,TOTAL 0.4 mg/dL (0.2-1); TOT PROT 5.4 g/dl (6.4-8.2)
[2021-11-12] MEDS: APIXABAN 5 MG TABLET PO SCH (09:33)
[2021-11-12] MEDS: CARVEDILOL 25 MG TABLET (FP) PO SCH (09:33)
[2021-11-12 14:45] VITALS: BP 145/78; PULSE 62; TEMP 97.6
== END 2021-11-12 18:21 | disposition home or self-care (01) | DRG 392 ==
LOC: JER 22:37 → JERBED 11-09 06:10 → J4S 11-10 03:37
PROVIDERS: ADMIT Internal Medicine; ATTEND Internal Medicine
DX: R19.7 Diarrhea, unspecified (principal); I50.32 Chronic diastolic (congestive) heart failure; I11.0 Hypertensive heart disease with heart failure; E03.9 Hypothyroidism, unspecified; I34.1 Nonrheumatic mitral (valve) prolapse; R50.9 Fever, unspecified; Z85.850 Personal history of malignant neoplasm of thyroid; Z95.0 Presence of cardiac pacemaker; Z95.3 Presence of xenogenic heart valve; R11.2 Nausea with vomiting, unspecified
CPT/HCPCS: 0241U-QW; 36415; 71045-TC-FY; 74176-TC; 80053; 81003; 82553; 82803; 83010; 83540; 83550; 83605; 83615; 83735; 84100; 84443; 84484; 85025; 85027; 85045; 85610; 85730; 86850; 86900; 86901; 87040; 87045; 87046; 87086; 87177; 87205; 87209; 87324; 87449; 87493; 87798; 93005; 93010; 97116-GP; 97161-GP; 99285-25; J1756